=== PATIENT | male | born 1955 | race American Indian/Alaskan Native ===

== ENCOUNTER 2019-09-27 00:41 | Inpatient (IN) | payer OTHER ==
[~2019-09-27] VITALS: Ht 177.8 cm; Wt 100.0 kg
[2019-09-27] VITALS (19 sets, daily range): BP systolic 111–149; BP diastolic 62–86
[2019-09-27 01:13] LABS: BASOPHILS # (AUTO) 0.1 X10'3 (0-0.2); BASOPHILS % (AUTO) 0.5 % (0-1); EOSINOPHILS # (AUTO) 0.2 X10'3 (0-0.9); EOSINOPHILS % (AUTO) 2.1 % (0-6); HEMATOCRIT 44.2 % (42.0-52.0); HEMOGLOBIN 15.1 g/dl (14.0-17.9); LYMPHOCYTES # (AUTO) 1.8 X10'3 (1.1-4.8); LYMPHOCYTES % (AUTO) 17.6 % (21-51); MEAN CORPUSCULAR HEMOGLOBIN 31.6 PG (27.0-31.0); MEAN CORPUSCULAR HGB CONC 34.1 g/dL (33.0-36.5); MEAN CORPUSCULAR VOLUME 92.7 FL (78-98); MEAN PLATELET VOLUME 8.8 FL (7.4-10.4); MONOCYTES # (AUTO) 0.8 X10'3 (0-0.9); MONOCYTES % (AUTO) 7.5 % (2-12); NEUTROPHILS # (AUTO) 7.4 X10'3 (1.8-7.7); NEUTROPHILS % (AUTO) 72.3 % (42-75); PLATELET COUNT 225 X10'3 (140-440); RED BLOOD COUNT 4.77 X10'6 (4.70-6.10); RED CELL DISTRIBUTION WIDTH 13.6 % (11.5-14.5); WHITE BLOOD COUNT 10.2 X10'3 (4.5-11.0)
[2019-09-27 01:14] LABS: CLARITY,URINE CLEAR (Clear); COLOR,URINE YELLOW (Yellow); GLUCOSE, URINE NEGATIVE (Neg); KETONES,URINE NEGATIVE (Neg); LEUKOCYTE ESTERASE ,URINE NEGATIVE (Neg); NITRITES, URINE NEGATIVE (Neg); OCCULT BLOOD,URINE NEGATIVE (Neg); PH,URINE 5.5 (4.8-8.0); PROTEIN,URINE NEGATIVE (Neg); UROBILINOGEN,URINE 0.2 E.U/dL (0.2-1.0)
[2019-09-27 01:15] LABS: UA COLLECTION TYPE URINAL
[2019-09-27] MEDS ORDERED: ondansetron/PF 4mg/2ml inj IV ONE (01:30)
[2019-09-27] MEDS ORDERED: morphine 4 MG/ML inj SYRINge IV ONE (01:30)
[2019-09-27 01:45] LABS: ALANINE AMINOTRANSFERASE 30 U/L (12-78); ALBUMIN 3.6 G/DL (3.4-5.0); ALKALINE PHOSPHATASE 108 IU/L (46-116); ANION GAP 8 (8-16); ASPARTATE AMINO TRANSFERASE 19 U/L (10-37); BILIRUBIN,TOTAL 0.4 MG/DL (0.1-1.0); BLOOD UREA NITROGEN 18 MG/DL (7-18); BUN/CREATININE RATIO 14.8 (5.4-32.0); CALCIUM 8.6 MG/DL (8.5-10.1); CHLORIDE 106 MMOL/L (99-107); CREATININE 1.22 MG/DL (0.60-1.10); GLUCOSE 153 MG/DL (70-104); LIPASE 72 U/L (73-393); SODIUM 140 MMOL/L (135-145); TOTAL CARBON DIOXIDE 26.3 MMOL/L (24-32); TOTAL PROTEIN 7.3 G/DL (6.4-8.2); eGFR 60 ML/MIN
[2019-09-27] MEDS ORDERED: CefTRIAXone/D5W-Rocephin 1gm 50 ML IV ONE (02:40)
[2019-09-27] MEDS ORDERED: metroNIDAZOLE-Flagyl 500mg/NS 100 ML IV ONE (02:40)
[2019-09-27] MEDS ORDERED: morphine 10mg/ml inj. IV ONE (02:40)
[2019-09-27] MEDS ORDERED: ATOR40TA PO (03:07)
[2019-09-27] MEDS: normal saline 1000ml 1,000 ML IV SCH ×4 (03:42→19:00)
[2019-09-27] MEDS ORDERED: morphine 2 MG/ML inj. syringe IV PRN ×2 (03:45→15:40)
[2019-09-27] MEDS ORDERED: ondansetron/PF 4mg/2ml inj IV PRN ×2 (03:45→15:40)
[2019-09-27] MEDS ORDERED: mag hydrox/Alum hydrox/simeth 30ml oral suspension PO PRN (03:45)
[2019-09-27] MEDS ORDERED: magnesium hydroxide 30ml (MOM) UD suspension PO PRN (03:45)
[2019-09-27] MEDS ORDERED: acetaminophen 325mg tablet PO PRN (03:45)
[2019-09-27] MEDS ORDERED: albuterol 2.5 MG/3 ML nebule NEB PRN (03:50)
[2019-09-27] MEDS ORDERED: ceFOXitin 2GM-NS 50mL ADDVANT. 50 ML IV ONE ×2 (04:15→15:29)
--- NOTE | 2019-09-27 06:02 | NUR ---
Report given to brittney Valdez.
--- NOTE | 2019-09-27 06:07 | NUR ---
Patient in room [facility]. I have received report from Meeta GARZA and had the opportunity to ask questions and assume patient care.
--- NOTE | 2019-09-27 07:32 | NUR ---
Dr. English seen and examined patient's abdomen
[2019-09-27 07:48] LABS: PRE OP PARTIAL THROMB. TIME 26 SECONDS (22-32)
[2019-09-27] MEDS: atorvastatin 20mg tablet PO SCH (08:00)
[2019-09-27] MEDS ORDERED: cefoxitin sod inj 2,000 MG in normal saline 100ml IV soln 100 ML IV ONE (08:00)
[2019-09-27] MEDS: morphine 2 MG/ML inj. syringe IV PRN ×2 (08:28→19:00)
[2019-09-27] MEDS ORDERED: famotidine/PF 10 mg/ml inj IV ONE (15:00)
--- NOTE | 2019-09-27 15:09 | NUR ---
Report given to Juliana GARZA from Recovery Room. Chart and preop antibiotic sent with patient. Hands off report given to the OR tech as well
[2019-09-27] MEDS ORDERED: BUPIVAcaine/PF 2.5 mg/ml (0.25%) 30ml vial ONE (15:17)
[2019-09-27] MEDS ORDERED: sevoflurane 250ml liquid IH ONE (15:35)
[2019-09-27] MEDS ORDERED: rocuronium 10mg/ml inj IV ONE (15:35)
[2019-09-27] MEDS ORDERED: ringers solution, lacted 1,000 ML IV SCH (15:37)
[2019-09-27] MEDS ORDERED: fentaNYL/PF 50MCG/1 ML 2ML syringe ONE (15:39)
[2019-09-27] MEDS ORDERED: morphine 4 MG/ML inj SYRINge IV PRN (15:40)
[2019-09-27] MEDS ORDERED: midazolam 2 mg/2 ml injection ONE (15:40)
[2019-09-27] MEDS ORDERED: proCHLORperazine 10 MG/2 ml inj IV PRN (15:40)
[2019-09-27] MEDS ORDERED: meperidine/PF 25mg/ml syringe IV PRN ×2 (15:40)
[2019-09-27] MEDS ORDERED: propofol inj 20 ML IV ONE (15:42)
[2019-09-27] MEDS ORDERED: LIDOcaine 2% (20mg/ml) 5ml vial ONE (15:42)
[2019-09-27] MEDS ORDERED: ondansetron/PF 4mg/2ml inj ONE (15:49)
[2019-09-27] MEDS ORDERED: dexamethasone sod phosphate 4mg/ml inj. ONE (15:50)
[2019-09-27] MEDS ORDERED: acetaminophen 1,000mg/100ml IV 100 ML IV ONE (16:30)
[2019-09-27] MEDS ORDERED: neostigmine methylsulfate 1 MG/ML 10ml vial ONE (16:35)
[2019-09-27] MEDS ORDERED: glycopyrrolate 0.2mg/ml inj ONE (16:36)
[2019-09-27] MEDS ORDERED: meperidine/PF 25mg/ml syringe ONE (16:46)
--- NOTE | 2019-09-27 16:47 | NUR ---
RECEIVED FROM OR VIA BED ACCOMPANIED BY ANESTHESIOLOGIST DR ALMODOVAR, REPORT GIVEN.20 GAUGE PIV R AC PATENT AND RUNNING LR AT 100 ML/HR. LG BANDAID X4 TO ABD CDI. ABD SOFT, VSS, PERIPHERAL PULSES PALPABLE, SKIN PINK AND WARM, GOOD CAP REFILL, SCDS ON, PAIN LEVEL AT AN 8.
[2019-09-27] MEDS: meperidine/PF 25mg/ml syringe IV PRN ×2 (16:48→17:24)
--- NOTE | 2019-09-27 17:19 | NUR ---
Received report from recovery room nurse Juliana RN. Awaiting arrival back to room 345A.
--- NOTE | 2019-09-27 17:40 | NUR ---
TRANSFERRED VIA BED ACCOMPANIED BY MYSELF, REPORT GIVEN.20 GAUGE PIV R AC PATENT AND RUNNING LR AT 100 ML/HR. LG BANDAID X4 TO ABD CDI. ABD SOFT, VSS, PERIPHERAL PULSES PALPABLE, SKIN PINK AND WARM, GOOD CAP REFILL, SCDS ON, PAIN LEVEL AT AN 4. RESTING COMFORTABLY.
--- NOTE | 2019-09-27 17:47 | NUR ---
TRANSFER TIME WAS 1747 NOT 1740
--- NOTE | 2019-09-27 18:30 | NUR ---
Patient in room [facility]. I have received report from ROSALINDA GARZA and had the opportunity to ask questions and assume patient care.
[2019-09-28] VITALS: BP 123/73
[2019-09-28] MEDS: morphine 2 MG/ML inj. syringe IV PRN ×2 (00:52→08:00)
[2019-09-28] MEDS: normal saline 1000ml 1,000 ML IV SCH (04:55)
--- NOTE | 2019-09-28 06:00 | NUR ---
Patient in room [facility]. I have received report from Jean GARZA and had the opportunity to ask questions and assume patient care.
[2019-09-28 06:09] LABS: BASOPHILS % (AUTO) 0.1 % (0-1); EOSINOPHILS % (AUTO) 0 % (0-6); HEMATOCRIT 39.1 % (42.0-52.0); HEMOGLOBIN 13.2 g/dl (14.0-17.9); LYMPHOCYTES # (AUTO) 0.5 X10'3 (1.1-4.8); LYMPHOCYTES % (AUTO) 3.1 % (21-51); MEAN CORPUSCULAR HEMOGLOBIN 31.2 PG (27.0-31.0); MEAN CORPUSCULAR HGB CONC 33.9 g/dL (33.0-36.5); MEAN CORPUSCULAR VOLUME 92.1 FL (78-98); MEAN PLATELET VOLUME 9.6 FL (7.4-10.4); MONOCYTES # (AUTO) 0.9 X10'3 (0-0.9); NEUTROPHILS # (AUTO) 16.4 X10'3 (1.8-7.7); NEUTROPHILS % (AUTO) 91.8 % (42-75); PLATELET COUNT 188 X10'3 (140-440); RED BLOOD COUNT 4.24 X10'6 (4.70-6.10); RED CELL DISTRIBUTION WIDTH 13.6 % (11.5-14.5); WHITE BLOOD COUNT 17.9 X10'3 (4.5-11.0)
[2019-09-28 06:21] LABS: ALANINE AMINOTRANSFERASE 43 U/L (12-78); ALBUMIN 2.9 G/DL (3.4-5.0); ALBUMIN/GLOBULIN RATIO 0.9 (1.1-1.5); ALKALINE PHOSPHATASE 69 IU/L (46-116); ANION GAP 9 (8-16); ASPARTATE AMINO TRANSFERASE 39 U/L (10-37); BILIRUBIN,TOTAL 0.6 MG/DL (0.1-1.0); BLOOD UREA NITROGEN 17 MG/DL (7-18); BUN/CREATININE RATIO 14.5 (5.4-32.0); CALCIUM 7.7 MG/DL (8.5-10.1); CHLORIDE 106 MMOL/L (99-107); CREATININE 1.17 MG/DL (0.60-1.10); GLUCOSE 171 MG/DL (70-104); SODIUM 140 MMOL/L (135-145); TOTAL CARBON DIOXIDE 25.4 MMOL/L (24-32); TOTAL PROTEIN 6.3 G/DL (6.4-8.2); eGFR 63 ML/MIN
--- NOTE | 2019-09-28 06:23 | NUR ---
Problems reprioritized. Patient report given, questions answered & plan of care reviewed with LORRAINE GARZA.
[2019-09-28 07:23] VITALS: BP 122/72
[2019-09-28] MEDS: atorvastatin 20mg tablet PO SCH (08:00)
[2019-09-28] MEDS ORDERED: HYDROcodone/acetaminophen 10/325mg tab PO PRN (08:35)
[2019-09-28 11:29] VITALS: BP 127/76
[2019-09-28] MEDS ORDERED: HYDR-4353 PO (12:22)
[2019-09-28] MEDS ORDERED: AMOX-422 PO (12:22)
== END 2019-09-28 12:53 | disposition home or self-care (01) | DRG 419 ==
LOC: ER 00:42 → ED HOLD 03:42 → EDBD 03:42 → SUR 3N 04:26
PROVIDERS: ADMIT Internal Medicine; ATTEND Family Medicine
PROC: 0FT44ZZ Resection of Gallbladder, Percutaneous Endoscopic Approach (ICD-10-PCS; principal; 2019-09-27 15:35)
DX: K80.00 Calculus of gallbladder with acute cholecystitis without obstruction (principal); E66.9 Obesity, unspecified; E78.5 Hyperlipidemia, unspecified; G47.30 Sleep apnea, unspecified; J45.909 Unspecified asthma, uncomplicated; Z68.31 Body mass index [BMI] 31.0-31.9, adult; Z79.899 Other long term (current) drug therapy
CPT/HCPCS: 36415; 76700; 80053; 81003; 83690; 85025; 85610; 85730; 87081; 93005; 94760; 96365; 96375; 96376; 99285; A4215; A4618; A7000; G0378; J0131; J0694; J0696; J1100; J2001; J2175; J2250; J2270; J2405; J2704; J2710; J3010; J3490; J7030; J7120

== ENCOUNTER 2022-01-01 01:49 | Emergency (ER) | payer OTHER ==
[~2022-01-01] VITALS: Ht 177.8 cm; Wt 105.5 kg
[~2022-01-01 01:49] MED LIST: ATOR40TA PO; HYDR-4353 PO
[2022-01-01 02:21] LABS: BASOPHILS % (AUTO) 0.5 % (0-1); EOSINOPHILS # (AUTO) 0.4 X10'3 (0-0.9); EOSINOPHILS % (AUTO) 4.2 % (0-6); HEMATOCRIT 45.3 % (42.0-52.0); HEMOGLOBIN 15.6 g/dl (14.0-17.9); LYMPHOCYTES # (AUTO) 1.5 X10'3 (1.1-4.8); LYMPHOCYTES % (AUTO) 16.2 % (21-51); MEAN CORPUSCULAR HEMOGLOBIN 31.8 PG (27.0-31.0); MEAN CORPUSCULAR HGB CONC 34.4 g/dL (33.0-36.5); MEAN CORPUSCULAR VOLUME 92.5 FL (78-98); MEAN PLATELET VOLUME 8.6 FL (7.4-10.4); MONOCYTES # (AUTO) 0.8 X10'3 (0-0.9); MONOCYTES % (AUTO) 8.5 % (2-12); NEUTROPHILS # (AUTO) 6.7 X10'3 (1.8-7.7); NEUTROPHILS % (AUTO) 70.6 % (42-75); PLATELET COUNT 213 X10'3 (140-440); RED CELL DISTRIBUTION WIDTH 13.7 % (11.5-14.5); WHITE BLOOD COUNT 9.5 X10'3 (4.5-11.0)
[2022-01-01 02:36] LABS: ALANINE AMINOTRANSFERASE 39 U/L (12-78); ALBUMIN 3.6 G/DL (3.4-5.0); ALKALINE PHOSPHATASE 128 IU/L (46-116); ANION GAP 8 (8-16); ASPARTATE AMINO TRANSFERASE 21 U/L (10-37); BILIRUBIN,TOTAL 0.4 MG/DL (0.1-1.0); BLOOD UREA NITROGEN 18 MG/DL (7-18); BUN/CREATININE RATIO 15.9 (5.4-32.0); CALCIUM 8.7 MG/DL (8.5-10.1); CHLORIDE 103 MMOL/L (99-107); CREATININE 1.13 MG/DL (0.60-1.10); GLUCOSE 149 MG/DL (70-104); POTASSIUM 4.1 MMOL/L (3.5-5.1); SODIUM 137 MMOL/L (135-145); TOTAL CARBON DIOXIDE 26.5 MMOL/L (24-32); TOTAL PROTEIN 7.3 G/DL (6.4-8.2); eGFR 65 ML/MIN
[2022-01-01 08:46] VITALS: BP 134/76
== END 2022-01-01 08:53 | disposition home or self-care (01) ==
LOC: ER 01:49
DX: R07.89 Other chest pain (principal); Z88.6 Allergy status to analgesic agent
CPT/HCPCS: 36415; 71045; 80053; 83880; 84484; 85025; 93005; 99285

== ENCOUNTER 2022-06-21 09:06 | Emergency (ER) | payer OTHER ==
[~2022-06-21] VITALS: Ht 180.3 cm; Wt 105.0 kg
[2022-06-21 09:24] VITALS: BP 181/103
[2022-06-21] MEDS ORDERED: AZIT250T27 PO (10:45)
[2022-06-21] MEDS ORDERED: dexamethasone 4mg/ml inj PO ONE (10:45)
== END 2022-06-21 11:06 | disposition home or self-care (01) ==
LOC: ER 09:08
DX: J20.9 Acute bronchitis, unspecified (principal); Z88.6 Allergy status to analgesic agent; Z79.899 Other long term (current) drug therapy; Z79.1 Long term (current) use of non-steroidal anti-inflammatories (NSAID)
CPT/HCPCS: 71046; 99283; J1100; 99284